=== PATIENT | male | born 1950 | race African-American/Black ===

== ENCOUNTER 2019-06-29 13:16 | Emergency (ER) | payer MEDICARE, OTHER ==
[2019-06-29 13:43] VITALS: BP 122/86
--- NOTE | 2019-06-29 15:05 | ER Document Report ---
ED Foreign Body - General Chief Complaint: Foreign Body in Ear Stated Complaint: FOREIGN OBJECT IN EAR Primary Care Provider: GONSALO VELAZQUEZ MD [EMERITUS] - Follow up as needed Mode of Arrival: Ambulatory Information source: Patient Notes: 68-year-old male presented to ED for part of a hearing aid stuck in his right ear. [place] [facility] were not able to get it out. It was removed within 10 seconds. He was patient is alert oriented respirations regular and unlabored speaking in full sentences walks with a even steady gait. TRAVEL OUTSIDE OF THE [place] IN LAST 30 DAYS: No - HPI Location of foreign body: Other - Right ear Onset: This morning Quality of pain: No pain Severity: None Pain Level: Denies Context: Other - Hearing aid Stuck in his ear Associated symptoms: Other - Urinate Stuck in his ear Exacerbated by: Denies Relieved by: Denies Similar symptoms previously: Yes Recently seen / treated by doctor: Yes - Related Data Allergies/Adverse Reactions: No Known Allergies Allergy (Verified 06/29/19 13:44) Past Medical History - General Information source: Patient - Extended - Social History Smoking Status: Former Smoker Frequency of alcohol use: None Drug Abuse: None Occupation: automotive alignment specialist Lives with: Family Family History: Reviewed & Not Pertinent Patient has suicidal ideation: No Patient has homicidal ideation: No - Past Medical History Cardiac Medical History: Reports: None Pulmonary Medical History: Reports: Hx Asthma EENT Medical History: Reports: None Neurological Medical History: Reports: None Endocrine Medical History: Reports: None Renal/ Medical History: Reports: None. Denies: Hx Peritoneal Dialysis Malignancy Medical History: Reports None GI Medical History: Reports: Other - Hernia with mesh inguinal Musculoskeletal Medical History: Reports Hx Musculoskeletal Trauma Skin Medical History: Reports None Psychiatric Medical History: Reports: None Traumatic Medical History: Reports: None Infectious Medical History: Reports: None Past Surgical History: Reports: Hx Inguinal Hernia, Other - Removal of shrapnel - Immunizations Immunizations up to date: Yes Hx Diphtheria, Pertussis, Tetanus Vaccination: Yes Review of Systems - Review of Systems Constitutional: No symptoms reported EENT: Other - Hearing aid Stuck in his right ear removed Cardiovascular: No symptoms reported Respiratory: No symptoms reported Gastrointestinal: No symptoms reported Genitourinary: No symptoms reported Male Genitourinary: No symptoms reported Musculoskeletal: No symptoms reported Skin: No symptoms reported Hematologic/Lymphatic: No symptoms reported Neurological/Psychological: No symptoms reported -: Yes All other systems reviewed and negative Physical Exam - Vital signs Vitals: Temp Pulse Resp BP Pulse Ox 97.7 F 67 16 122/86 H 100 06/29/19 13:41 06/29/19 13:41 06/29/19 13:41 06/29/19 13:41 06/29/19 13:41 Interpretation: Normal - General General appearance: Appears well, Alert - HEENT Head: Normocephalic - What, Atraumatic Eyes: Normal Pupils: PERRL Ears: Normal External canal: Foreign body - Hearing aid Removed right ear Tympanic membrane: Normal Sinus: Normal Nasal: Normal Mouth/Lips: Normal Mucous membranes: Normal Pharynx: Normal Neck: Normal - Respiratory Respiratory status: No respiratory distress Chest status: Nontender Breath sounds: Normal Chest palpation: Normal - Cardiovascular Rhythm: Regular Heart sounds: Normal auscultation Murmur: No - Abdominal Inspection: Normal Distension: No distension Bowel sounds: Normal Tenderness: Nontender Organomegaly: No organomegaly - Back Back: Normal, Nontender - Extremities General upper extremity: Normal inspection, Nontender, Normal color, Normal ROM, Normal temperature General lower extremity: Normal inspection, Nontender, Normal color, Normal ROM, Normal temperature, Normal weight bearing. No: Mikki's sign - Neurological Neuro grossly intact: Yes Cognition: Normal Orientation: AAOx4 [place] Coma Scale Eye Opening: Spontaneous [place] Coma Scale Verbal: Oriented [place] Coma Scale Motor: Obeys Commands Jasper Coma Scale Total: 15 Speech: Normal Motor strength normal: LUE, RUE, LLE, RLE Sensory: Normal - Psychological Associated symptoms: Normal affect, Normal mood - Skin Skin Temperature: Warm Skin Moisture: Dry Skin Color: Normal Course - Re-evaluation Re-evalutation: 06/29/19 15:04 Hearing aid Removed from right ear using forceps. Patient tolerated well. No difficulty with procedure. - Vital Signs Vital signs: Temp Pulse Resp BP Pulse Ox 97.7 F 67 16 122/86 H 100 06/29/19 13:41 06/29/19 13:41 06/29/19 13:41 06/29/19 13:41 06/29/19 13:41 Discharge - Discharge Clinical Impression: Hearing aid Removed from right ear Condition: Stable Disposition: HOME, SELF-CARE Additional Instructions: Foreign Object in the Ear Examination showed a foreign object in the ear. This can cause pain, swelling, infection, and decreased hearing. An ear foreign body should be removed promptly. Usually no further treatment is necessary following removal. If infection is already present, we prescribe antibiotic drops. Sometimes the object damages the eardrum. If hearing is not normal, or if an obvious injury was seen, another checkup is necessary. If there is continued drainage, continued earache, fever, headache, or hearing loss, come back for reexamination. Acetaminophen Acetaminophen may be taken for pain relief or fever control. It's much safer than aspirin, offering a wider range of "safe" dosages. It is safe during . Some brand names are Tylenol, Panadol, Datril, Anacin 3, Tempra, and Liquiprin. Acetaminophen can be repeated every four hours. The following are maximum recommended dosages: WEIGHT Dose Drops Elixir Chewable( 80mg) (LBS.) drprs=droppers tsp=teaspoon 6 40 mg .4 ml (1/2) 6-11 80 mg .8 ml (full) 1/2 tsp 1 tab 12-16 120 mg 1 1/2 drprs 3/4 tsp 1 1/2 tabs 17-23 160 mg 2 drprs 1 tsp 2 tabs 24-30 240 mg 3 drprs 1 1/2 tsp 3 tabs 30-35 320 mg 2 tsp 4 tabs 36-41 360 mg 2 1/4 tsp 4 1/2 tabs 42-47 400 mg 2 1/2 tsp 5 tabs 48-53 480 mg 3 tsp 6 tabs 54-59 520 mg 3 1/4 tsp 6 1/2 tabs 60-64 560 mg 3 1/2 tsp 7 tabs 65-70 600 mg 3 3/4 tsp 7 1/2 tabs 71-76 640 mg 4 tsp 8 tabs 77-82 720 mg 4 1/2 tsp 9 tabs 83-88 800 mg 5 tsp 10 tabs >89 pounds or adults 650 mg to 900 mg Acetaminophen can be repeated every four hours. Maximum daily dose not to exceed 4000 mg. These maximum recommended dosages are slightly higher than the dosages written on the product container, but these dosages are very safe and well below the toxic dosage for acetaminophen. FOLLOW-UP CARE: If you have been referred to a physician for follow-up care, call the physicians office for an appointment as you were instructed or within the next two days. If you experience worsening or a significant change in your symptoms, notify the physician immediately or return to the Emergency Department at any time for re-evaluation. Referrals: GONSALO VELAZQUEZ MD [EMERITUS] - Follow up as needed
== END 2019-06-29 15:13 | disposition home or self-care (01) ==
LOC: ER 13:16
DX: T16.1XXA Foreign body in right ear, initial encounter (principal); X58.XXXA Exposure to other specified factors, initial encounter; J45.909 Unspecified asthma, uncomplicated; Z87.891 Personal history of nicotine dependence
CPT/HCPCS: 99282